=== PATIENT | male | born 1940 | race Caucasian/White ===

== ENCOUNTER 2018-06-15 20:21 | Emergency (ER) ==
[2018-06-15 20:27] VITALS: BP 137/83; TEMP 99; BMI 31.6
--- NOTE | 2018-06-15 22:28 | ED.PDOC ---
General ED Provider: Dr. WILVER VELEZ-ER Chief Complaint: Non-specific Complaint Stated Complaint: i took too much of my fast acting insulin Time Seen by Physician: 22:26 Mode of Arrival: Walk-In Information Source: Patient Exam Limitations: No limitations Primary Care Provider: BEBE AUGUSTE Nursing and Triage Documentation Reviewed and Agree: Yes Does patient meet sepsis criteria?: No System Inflammatory Response Syndrome: Not Applicable Sepsis Protocol: For patient's 13 years and over: Temp is 96.8 and below OR 101 and greater Pulse >90 BPM Resp >20/minute Acutely Altered Mental Status Are patient's symptoms suggestive of a new infection, such as: -Pneumonia -Skin, Soft Tissue -Endocarditis -UTI -Bone, Joint Infection -Implantable Device -Acute Abdominal Infection -Wound Infection -Meningitis -Blood Stream Catheter Infection -Unknown Endocrine Complaint Exam - Diabetic Complication Complaint/Exam Onset/Duration: tonight Symptoms Are: Still present Timing: Constant Initial Severity: Mild Current Severity: Mild Character: Alert Aggravating: Reports: Medication change Alleviating: Reports: Food Associated Signs and Symptoms: Denies: Decreased LOC, Polydipsia, Polyuria, Polyphagia, Weight loss, Abdominal pain, Nausea, Vomiting, Fever, Diaphoresis, Fruity breath Related History: Reports: DM 2, Insulin requiring Acetone on Breath: No Dry Mucous Membranes: No Kussmaul Respirations: No Glascow Coma Scale (see protocol): 15 Meningeal Signs: No Focal Weakness: None Focal Sensory Loss: None Gait: Normal Nystagmus Present: No Gag Reflex Present: Yes Finger to Nose: Normal Romberg Test Positive: No Babinski Sign: Negative Right, Negative Left Heel to Toe Normal: Yes Differential Diagnoses: Hypoglycemia, Hyperglycemia Review of Systems - Review Of Systems Constitutional: Reports: No symptoms Eyes: Reports: No symptoms Ears, Nose, Mouth, Throat: Reports: No symptoms Respiratory: Reports: No symptoms Cardiac: Reports: No symptoms GI: Reports: No symptoms : Reports: No symptoms Musculoskeletal: Reports: No symptoms Skin: Reports: No symptoms Neurological: Reports: No symptoms Endocrine: Reports: No symptoms Hematologic/Lymphatic: Reports: No symptoms All Other Systems: Reviewed and Negative Past Medical History - Past Medical History Previously Healthy: No Endocrine: Reports: DM 2 Cardiovascular: Reports: Unknown Respiratory: Reports: Unknown Hematological: Reports: Unknown Gastrointestinal: Reports: Unknown Genitourinary: Reports: Unknown Neuro/Psych: Reports: Unknown Musculoskeletal: Reports: Unknown Cancer: Reports: Unknown - Surgical History General Surgical History: Reports: Unknown - Family History Family History: Reports: Unknown - Social History Smoking Status: Former smoker Hx Substance Use: No Alcohol Screening: None - Immunizations Tetanus Shot up to Date: No Physical Exam - Physical Exam Appearance: Well-appearing, No pain distress, Well-nourished Eyes: AKOSUA, EOMI, Conjunctiva clear ENT: Ears normal, Nose normal, Oropharynx normal Neck: Supple Respiratory: Airway patent, Breath sounds clear, Breath sounds equal, Respirations nonlabored Cardiovascular: RRR, Pulses normal, No rub, No murmur GI/: Soft, Nontender, No masses, Bowel sounds normal, No Organomegaly Musculoskeletal: Normal strength, ROM intact, No edema, No calf tenderness Skin: Warm Neurological: Sensation intact, Motor intact, Reflexes intact, Cranial nerves intact, Alert, Oriented Psychiatric: Affect appropriate, Mood appropriate Critical Care Note - Critical Care Note Total Time (mins): 0 Course - Course Orders, Labs, Meds: Orders Category Date Time Status ACCUCHECK (ED) [ED ACCUCHECK ASSESSMENT] DIRECTED EMERGENCY 06/15/18 20:33 Active IV [ED IV/MEDIPORT/POWERPORT] .ONCE EMERGENCY 06/16/18 01:31 Active 0.9 % Sodium Chloride [Saline Flush] MEDS 06/16/18 01:31 Ordered 1 syr IVF PRN PRN Dextrose 5 % and 0.9 % NaCl [Dextrose 5%-Ns IV Solution MEDS 06/16/18 01:43 Active ] 1,000 ml IV 30 mls/hr Medications Generic Name Dose Route Start Last Admin Trade Name Freq PRN Reason Stop Dose Admin Dextrose/Sodium Chloride 1,000 mls @ 30 mls/hr 06/16/18 01:43 06/16/18 01:59 Dextrose 5%-Ns Iv Solution IV 06/17/18 11:02 30 mls/hr .[id number] STA Administration Sodium Chloride 1 syr 06/16/18 01:31 06/16/18 02:01 Saline Flush IVF 1 syr PRN PRN Administration To flush IV Vital Signs: Temp Pulse Resp BP Pulse Ox 06/15/18 20:21 99.0 F 103 H 18 137/83 98 Departure - Departure Time of Disposition: 05:30 Disposition: HOME SELF-CARE Discharge Problem: Hypoglycemia Instructions: Hypoglycemia in a Person with Diabetes (ED) Condition: Good Pt referred to PMD for follow-up: Yes IPMP verified?: No Additional Instructions: monitor bs this am---call if any problems Allergies/Adverse Reactions: Allergies codeine Adverse Reaction (Verified 06/15/18 20:25) Home Medications: Ambulatory Orders 1 [Unobtainable] 06/15/18 Disposition Discussed With: Patient, Family
[2018-06-16] MEDS ORDERED: DEXTROSE 5%-NS IV SOLUTION 1,000 ML IV STA (01:43)
== END 2018-06-16 05:38 | disposition home or self-care (01) ==
LOC: ED 20:21
DX: E11.649 Type 2 diabetes mellitus with hypoglycemia without coma (principal)
CPT/HCPCS: 82962; 96360; 96361; 99283

== ENCOUNTER 2018-07-16 07:15 | Emergency (ER) | payer OTHER ==
[2018-07-16 07:22] VITALS: BP 112/76; TEMP 100.4
[2018-07-16 07:39] VITALS: BMI 31.8
--- NOTE | 2018-07-16 08:24 | CT ---
Exam: CT of the abdomen and pelvis without contrast History: Abdominal pain and fever Technique: [address] of the abdomen and pelvis without intravascular contrast FINDINGS: The lung bases are clear. No significant liver abnormality. The adrenals, pancreas and s pleen are unremarkable. Prior adjustable gastric ring without complication. The inflation port is i n the left mid abdomen. .Marked gallbladder distension with possible surrounding inflammation. Gall bladder diameter of 11 x 6 cm. Multiple cholelithiasis is present. Kidneys and proximal collecting system are unremarkable. The appendix is normal. Bowel loops demonstrate normal caliber. No inflam atory change seen in the mesentery or retroperitoneum. Calcification of the central mesentery withou t surrounding inflammation. Pelvic genitourinary structures appear normal. Pelvic bowel loops are unremarkable. No inflammatory change in the pelvic fat. No acute abnormality of the abdominal or pelvic skeleton. Prior left hip arthroplasty with associated artifact. Impression: 1. Marked gallbladder distension with multiple cholelithiasis and possible pericholecystic inflammat ion. Correlate for cholecystitis 2. Prior adjustable gastric ring bariatric surgery. 3. No acute findings of the abdomen or pelvis otherwise.
[2018-07-16] MEDS: ZOSYN 3.375 GM 3.375 GM in SODIUM CHLORIDE 50 ML IV STA (08:45)
[2018-07-16] MEDS: SODIUM CHLORIDE 1,000 ML IV STA (08:45)
--- NOTE | 2018-07-16 08:57 | ED.PDOC ---
General ED Provider: Dr. WILVER VELEZ-ER Chief Complaint: Abdominal Pain Stated Complaint: im hurting and running fever Time Seen by Physician: 07:15 Mode of Arrival: Wheelchair Information Source: Patient, Family Exam Limitations: No limitations Primary Care Provider: BEBE AUGUSTE Nursing and Triage Documentation Reviewed and Agree: Yes Does patient meet sepsis criteria?: No System Inflammatory Response Syndrome: Not Applicable Sepsis Protocol: For patient's 13 years and over: Temp is 96.8 and below OR 101 and greater Pulse >90 BPM Resp >20/minute Acutely Altered Mental Status Are patient's symptoms suggestive of a new infection, such as: -Pneumonia -Skin, Soft Tissue -Endocarditis -UTI -Bone, Joint Infection -Implantable Device -Acute Abdominal Infection -Wound Infection -Meningitis -Blood Stream Catheter Infection -Unknown GI Complaint Exam - Abdominal Pain Complaint/Exam Onset: Gradual Duration: 3 days Symptoms Are: Still present Timing: Constant Initial Severity: Mild Current Severity: Moderate Location of Pain: Epigastric Character: Reports: Dull, Aching, Cramping Aggravating: Reports: Food Associated Signs and Symptoms: Reports: Fever, Nausea. Denies: Diaphoresis Differential Diagnoses: GB Quality Indicator For Non-Traumatic Chest Pain/Syncope: EKG Performed Review of Systems - Review Of Systems Constitutional: Reports: Chills, Fever, Loss of appetite Eyes: Reports: No symptoms Ears, Nose, Mouth, Throat: Reports: No symptoms Respiratory: Reports: No symptoms Cardiac: Reports: No symptoms GI: Reports: Abdominal pain, Nausea : Reports: No symptoms Musculoskeletal: Reports: No symptoms Skin: Reports: No symptoms Neurological: Reports: No symptoms Endocrine: Reports: No symptoms Hematologic/Lymphatic: Reports: No symptoms All Other Systems: Reviewed and Negative Past Medical History - Past Medical History Previously Healthy: No Endocrine: Reports: DM 2 Cardiovascular: Reports: Unknown Respiratory: Reports: Unknown Hematological: Reports: Unknown Gastrointestinal: Reports: Unknown Genitourinary: Reports: Unknown Neuro/Psych: Reports: Unknown Musculoskeletal: Reports: Unknown Cancer: Reports: Unknown - Surgical History General Surgical History: Reports: Unknown - Family History Family History: Reports: Unknown - Social History Smoking Status: Former smoker Hx Substance Use: No Alcohol Screening: None Physical Exam - Physical Exam Appearance: Well-appearing, No pain distress, Well-nourished Pain Distress: Mild Eyes: AKOSUA, EOMI, Conjunctiva clear ENT: Ears normal, Nose normal, Oropharynx normal Neck: Supple Respiratory: Airway patent, Breath sounds clear, Breath sounds equal, Respirations nonlabored Cardiovascular: RRR, Pulses normal, No rub, No murmur GI/: Soft, Tender Musculoskeletal: Normal strength, ROM intact, No edema, No calf tenderness Skin: Warm, Dry, Normal color Neurological: Sensation intact Psychiatric: Affect appropriate, Mood appropriate Interpretation - Radiology Interpretation Radiology Interpretation By: Radiologist Radiology Results: Positive Exam Interpreted: CT Scan - EKG Interpretation Time of EKG #1: 08:57 Rate: Tachy Rhythm: Sinus Ectopy: None [place]: NL ST Segment: Normal Interpretation: sinus tachy Critical Care Note - Critical Care Note Total Time (mins): 0 Course - Course Hematology/Chemistry: 07/16/18 07:50 07/16/18 07:50 Orders, Labs, Meds: Lab Review 07/16/18 07/16/18 07/16/18 07:50 07:50 07:50 WBC 15.27 H RBC 3.75 L Hgb 12.4 L Hct 36.5 L MCV 97.3 H MCH 33.1 H MCHC 34.0 RDW Coeff of Nixon 13.5 Plt Count 217 Immature Gran % (Auto) 0.5 Neut % (Auto) 73.6 Lymph % (Auto) 14.2 Sac % (Auto) 11.3 H Eos % (Auto) 0.1 Baso % (Auto) 0.3 Immature Gran # (Auto) 0.1 Neut # (Auto) 11.2 H Lymph # (Auto) 2.2 Sac # (Auto) 1.7 Eos # (Auto) 0.0 Baso # (Auto) 0.1 ESR 71 H Sodium 134.4 L Potassium 3.74 Chloride 96.7 L Carbon Dioxide 27.8 Anion Gap 13.64 BUN 36.8 H Creatinine 2.38 H Estimated GFR (MDRD) 27.00 BUN/Creatinine Ratio 15.46 Glucose 162.9 H Lactic Acid 0.82 Calcium 8.89 Total Bilirubin 1.10 AST 18.9 ALT 17.4 Alkaline Phosphatase 74.0 Total Creatine Kinase 26.4 L Troponin I 0.051 Total Protein 6.54 Albumin 3.77 Globulin 2.77 Albumin/Globulin Ratio 1.36 Amylase 40.3 Lipase < 10.0 L Procalcitonin Urine Color Urine Clarity Urine pH Ur Specific [place] Urine Protein Urine Glucose (UA) Urine Ketones Urine Blood Urine Nitrite Urine Bilirubin Urine Urobilinogen Ur Leukocyte Esterase Urine Microscopic RBC Urine Microscopic WBC Ur Squamous Epith Cells Urine Bacteria 07/16/18 07/16/18 07:50 08:00 WBC RBC Hgb Hct MCV MCH MCHC RDW Coeff of Nixon Plt Count Immature Gran % (Auto) Neut % (Auto) Lymph % (Auto) Sac % (Auto) Eos % (Auto) Baso % (Auto) Immature Gran # (Auto) Neut # (Auto) Lymph # (Auto) Sac # (Auto) Eos # (Auto) Baso # (Auto) ESR Sodium Potassium Chloride Carbon Dioxide Anion Gap BUN Creatinine Estimated GFR (MDRD) BUN/Creatinine Ratio Glucose Lactic Acid Calcium Total Bilirubin AST ALT Alkaline Phosphatase Total Creatine Kinase Troponin I Total Protein Albumin Globulin Albumin/Globulin Ratio Amylase Lipase Procalcitonin 0.20 Urine Color Yellow Urine Clarity Clear Urine pH 7.5 Ur Specific [place] 1.015 Urine Protein 2+ Urine Glucose (UA) Trace Urine Ketones Negative Urine Blood 2+ Urine Nitrite Negative Urine Bilirubin Negative Urine Urobilinogen 1.0 Ur Leukocyte Esterase Negative Urine Microscopic RBC 5-10 Urine Microscopic WBC 0-2 Ur Squamous Epith Cells 0-2 Urine Bacteria Trace Orders Category Date Time Status EKG-(ED ONLY) Stat CARDIO 07/16/18 07:29 Completed ED IV/MEDIPORT/POWERPORT .ONCE EMERGENCY 07/16/18 07:30 Active AMYLASE Stat LAB 07/16/18 07:50 Completed BLOOD CULTURE (ED ONLY) Stat LAB 07/16/18 07:50 Received CBC W/ AUTO DIFF Stat LAB 07/16/18 07:50 Completed COMPREHENSIVE METABOLIC PANEL Stat LAB 07/16/18 07:50 Completed CREATINE KINASE Stat LAB 07/16/18 07:50 Completed ESR Stat LAB 07/16/18 07:50 Completed LACTIC ACID Stat LAB 07/16/18 07:50 Completed LIPASE Stat LAB 07/16/18 07:50 Completed PROCALCITONIN Stat LAB 07/16/18 07:50 Completed TROPONIN I Stat LAB 07/16/18 07:50 Completed URINALYSIS C & S IF INDICATED Stat LAB 07/16/18 08:00 Completed 0.9 % Sodium Chloride [Saline Flush] MEDS 07/16/18 07:29 Active 1 syr IVF PRN PRN Piperacillin Sodium/Tazobactam [Zosyn 3.375 gm] 3.375 MEDS 07/16/18 08:35 Active gm 0.9 % Sodium Chloride [Sodium Chloride] 50 ml IV ONCE Sodium Chloride 0.9% [Sodium Chloride] 1,000 ml MEDS 07/16/18 08:35 Active IV 100 mls/hr CT ABDOMEN/PELVIS WO CONTRAST Stat RADS 07/16/18 07:55 Completed Medications Generic Name Dose Route Start Last Admin Trade Name Freq PRN Reason Stop Dose Admin Sodium Chloride 1,000 mls @ 100 mls/hr 07/16/18 08:35 07/16/18 08:45 Sodium Chloride IV 07/16/18 18:34 100 mls/hr .Q10H STA Administration Piperacillin Sod/Tazobactam 50 mls @ 50 mls/hr 07/16/18 08:35 07/16/18 08:45 Sod 3.375 gm/ Sodium Chloride IV 07/16/18 09:34 50 mls/hr ONCE STA Administration Sodium Chloride 1 syr 07/16/18 07:29 07/16/18 08:45 Saline Flush IVF 1 syr PRN PRN Administration To flush IV Vital Signs: Temp Pulse Resp BP Pulse Ox 07/16/18 07:15 100.4 F H 115 H 20 112/76 94 L Departure - Departure Time of Disposition: 08:57 Disposition: HOME SELF-CARE Discharge Problem: Cholecystitis Cholelithiasis Qualifiers: Cholelithiasis location: other site Biliary obstruction: without biliary obstruction Qualified Code(s): K80.80 - Other cholelithiasis without obstruction Instructions: Cholecystitis (ED) Condition: Good Pt referred to PMD for follow-up: Yes IPMP verified?: No Allergies/Adverse Reactions: Allergies codeine Adverse Reaction (Verified 07/16/18 07:25) Home Medications: Ambulatory Orders Acetaminophen 500 mg PO Q6HR PRN 07/16/18 Albuterol Sulfate [Proair Respiclick] 90 mcg IH Q6HR 07/16/18 Aspirin [Aspirin EC] 81 mg PO DAILY 07/16/18 Atorvastatin Calcium 40 mg PO BEDTIME 07/16/18 Bumetanide 2 mg PO DAILY 07/16/18 Escitalopram Oxalate 10 mg PO DAILY 07/16/18 Ferrous Sulfate 325 mg PO DIRECTED 07/16/18 Finasteride 5 mg PO BEDTIME 07/16/18 Fluticasone/Vilanterol [Breo Ellipta Inhaler] 1 each IH DAILY 07/16/18 Gabapentin 600 mg PO BEDTIME 07/16/18 Insulin Aspart [Novolog] 1 unit SQ DIRECTED PRN 07/16/18 Insulin Lispro [Humalog] 1 unit SUBCUT DIRECTED PRN 07/16/18 Insulin NPH Human Isophane [Novolin N] 25 unit SQ BID 07/16/18 Multivitamin [Multi-Vitamin Daily] 1 each PO DAILY 07/16/18 Nitroglycerin [Nitrostat] 0.4 mg SL Q5MIN X 3 DOSES PRN 07/16/18 Pantoprazole Sodium [Protonix] 40 mg PO BID 07/16/18 Spironolactone [Aldactone] 50 mg PO DAILY 07/16/18 Tamsulosin HCl [Flomax] 0.4 mg PO BEDTIME 07/16/18 Tiotropium [place] [Spiriva] 1 cap IH DAILY 07/16/18 Transfer Form Completed: Yes Disposition Discussed With: Patient, Family
== END 2018-07-16 09:21 | disposition short-term general hospital (02) ==
LOC: ED 07:15
DX: K80.80 Other cholelithiasis without obstruction (principal); E11.9 Type 2 diabetes mellitus without complications; Z79.4 Long term (current) use of insulin; Z79.899 Other long term (current) drug therapy
CPT/HCPCS: 36415; 80053; 81001; 82150; 82550; 83605; 83690; 84145; 84484; 85025; 85651; 87040; 93005; 93010; 96365; 99285

== ENCOUNTER 2018-07-16 09:21 | Outpatient (CLI) ==
[2018-07-16 07:39] VITALS: BMI 31.8
== END 2018-07-16 09:46 | disposition short-term general hospital (02) ==
LOC: AMBL 09:21
PROVIDERS: ATTEND Family Medicine
DX: K82.9 Disease of gallbladder, unspecified (principal)